=== PATIENT | male | born 1970 | race Caucasian/White ===

== ENCOUNTER 2020-06-25 10:24 | Outpatient (CLI) | payer BC, SELFPAY ==
--- NOTE | 2020-06-25 10:35 | EST_ITS ---
Patient Info Name: Ambrose Quezada Age: 50 years : 1970 Gender: Male Ht: 72 in Wt: 204 lbs BSA: 2.18 m2 BP: 128 / 80 mmHg Exam Date: 06/25/2020 10:51 AM Exam Location: [facility] Patient Status: Outpatient Admit Date: 06/25/2020 Staff Ordering Physician: Rashard Lopez DO Industrial Training Specialist: Nain Magdaleno RDCS, RT Attending Provider: MICKEY APODACA DO Referring Physician: John BLCAKMAN; Exercise Technologist: Nain Magdaleno RDCS, RT Exercise Physician: Mickey Apodaca DO Exam Type: CA stress echo Study Info Indications Z82.49 - Family history of ischemic heart disease and other diseases of the circulatory system Treadmill exercise stress echocardiogram is performed. Summary 1. 1. Negative Artur exercise stress test for ischemic ST changes by ECG criteria. 2. 2. Good functional capacity, achieving 13 METs of workload. 3. 3. Appropriate HR response to exercise. 4. 4. Appropriate HR recovery at 1 minute post exercise. 5. 5. Negative stress echocardiogram for ischemia by wall motion analysis. 6. 6. Patient informed of the above results. Stress Echo Findings Left Ventricle Appropriate increase in LV endocardial thickening with systole. Appropriate augmentation of contractility with systole. No wall motion abnormality. Left Ventricle Normal LV systolic function, no wall motion abnormality. Protocol: Artur Stress ECG Details Stage: REST Duration (min): 2 min : 6 sec Speed (mph): 0.0 Grade (%): 0 HR (bpm): 69 SBP (mmHg): 128 DBP (mmHg): 80 METS: --- Stage: REST Duration (min): 15 min : 51 sec Speed (mph): 0.0 Grade (%): 0 HR (bpm): 75 SBP (mmHg): 128 DBP (mmHg): 80 METS: --- Stage: STAGE 1 Duration (min): 1 min : 0 sec Speed (mph): 1.7 Grade (%): 10 HR (bpm): 98 SBP (mmHg): 128 DBP (mmHg): 80 METS: --- Stage: STAGE 1 Duration (min): 2 min : 0 sec Speed (mph): 1.7 Grade (%): 10 HR (bpm): 97 SBP (mmHg): 128 DBP (mmHg): 80 METS: --- Stage: STAGE 1 Duration (min): 3 min : 0 sec Speed (mph): 1.7 Grade (%): 10 HR (bpm): 97 SBP (mmHg): 144 DBP (mmHg): 79 METS: --- Stage: STAGE 2 Duration (min): 1 min : 0 sec Speed (mph): 2.5 Grade (%): 12 HR (bpm): 110 SBP (mmHg): 144 DBP (mmHg): 79 METS: --- Stage: STAGE 2 Duration (min): 2 min : 0 sec Speed (mph): 2.5 Grade (%): 12 HR (bpm): 114 SBP (mmHg): 181 DBP (mmHg): 82 METS: --- Stage: STAGE 2 Duration (min): 3 min : 0 sec Speed (mph): 2.5 Grade (%): 12 HR (bpm): 118 SBP (mmHg): 181 DBP (mmHg): 82 METS: --- Stage: STAGE 3 Duration (min): 1 min : 0 sec Speed (mph): 3.4 Grade (%): 14 HR (bpm): 126 SBP (mmHg): 196 DBP (mmHg): 84 METS: --- Stage: STAGE 3 Duration (min): 2 min : 0 sec Speed (mph): 3.4 Grade (%): 14 HR (bpm): 134 SBP (mmHg): 196 DBP (mmHg): 84 METS: --- Stage:
== END 2020-06-25 10:25 | disposition home or self-care (01) ==
PROVIDERS: PCP Internal Medicine; Visit Provider Internal Medicine
DX: Z82.49 Family history of ischemic heart disease and other diseases of the circulatory system (principal)
CPT/HCPCS: 93351

== ENCOUNTER 2020-12-09 07:59 | Outpatient (CLI) | payer BC, SELFPAY ==
--- NOTE | ~2020-12-09 | XR_ITS ---
XR chest 2V DATE: 12/09/2020 08:26 INDICATION: Cough. Sinus drainage. Nonsmoker. Prostate cancer. TECHNIQUE: PA and lateral views COMPARISON: 05/27/2017 PA and lateral chest FINDINGS: Normal heart size. No hilar or mediastinal enlargement. No pulmonary infiltrate or consolid ation, pleural effusion or pulmonary vascular congestion or pneumothorax. Included skeletal structure s are unremarkable. IMPRESSION: No active cardiopulmonary disease Reviewed, dictated and finalized at location A.
--- NOTE | ~2020-12-09 | CT_ITS ---
EXAMINATION: CT abdomen pelvis w con DATE: 12/09/2020 08:42 INDICATION: Prostate cancer TECHNIQUE: Computed tomography (CT) of the abdomen and pelvis was performed with 100 cc Omnipaque 350 intravenous contrast. Automated exposure control and iterative reconstruction technique were employe d. Exam dose: 688.09 mGy-cm total exam DLP. COMPARISON: 11/27/2014 CT abdomen pelvis FINDINGS: The lung bases are clear. Normal heart size. No pericardial or pleural effusion. Stable approximately similar hypoechoic attenuating lesion in the posteromedial right hepatic lobe, u nchanged since 11/27/2014; this is therefore likely benign, possibly a small hemangioma or cyst. No ot her hepatic space-occupying mass lesion is detected. The gallbladder is unremarkable. No gallbladder wall thickening or pericholecystic fluid or fat stran ding. No bile duct or pancreatic duct dilatation. No pancreatic mass lesion or calcification. Normal splenic size. Normal morphology of the adrenal glands. No renal mass lesion or urinary tract calculus or hydroureteronephrosis. The urinary bladder is relat ively evacuated and unremarkable. Moderate prostate enlargement. Normal caliber of the abdominal aorta. No intraperitoneal or retroperitoneal or pelvic mass lesion or adenopathy or ascites. Diverticulosis of the colon; no CT evidence of diverticulitis. No bowel obstruction, bowel wall thick ening, pneumatosis or intraperitoneal free air. No evidence of appendicitis. No suspicious osteolytic or osteoblastic lesions. IMPRESSION: Stable likely benign 7 mm hypoattenuation lesion of the right hepatic lobe, unchanged si nce 11/27/2014 Diverticulosis of the colon; no CT evidence of diverticulitis Moderate prostate enlargement. No pelvic or abdominal adenopathy or osteosclerotic metastatic disease is detected Reviewed, dictated and finalized at Location A. Reviewed, dictated and finalized at location A. IMPRESSION: Stable likely benign 7 mm hypoattenuation lesion of the right hepa tic lobe, unchanged since 11/27/2014 Diverticulosis of the colon; no CT evidence of diverticulitis Moderate prostate enlargement. No pelvic or abdominal adenopathy or osteosclero tic metastatic disease is detected
--- NOTE | ~2020-12-09 | NM_ITS ---
NM bone scan whole body DATE: 12/09/2020 11:27 INDICATION: Prostate cancer TECHNIQUE: Routine delayed images of the skeleton after 23 mCi 99m technetium HDP intravenous adminis tration. COMPARISON: 12/09/2020 2 view chest 12/09/2020 CT abdomen pelvis FINDINGS: There is normal distribution of activity throughout the axial and appendicular skeleton wit hout evidence of any significant abnormal focus of increased uptake. Normal renal activity is noted. IMPRESSION: Normal examination; no evidence of metastatic disease Reviewed, dictated and finalized at Location A. Reviewed, dictated and finalized at location A.
== END 2020-12-09 08:00 | disposition home or self-care (01) ==
LOC: ANHIMG 08:05
PROVIDERS: PCP Internal Medicine; Visit Provider Urology
DX: C61 Malignant neoplasm of prostate (principal); K57.30 Diverticulosis of large intestine without perforation or abscess without bleeding
CPT/HCPCS: 71046; 74177; 78306; A9561; Q9967

== ENCOUNTER 2020-12-17 09:56 | Outpatient (CLI) | payer BC, SELFPAY ==
--- NOTE | 2020-12-17 11:00 | ECG_ITS ---
Measurements Intervals [place] Rate: 61 P: 50 RI: 149 QRS: 67 QRSD: 115 T: 26 QT: 392 QTc: 396 Interpretive Statements SINUS RHYTHM INTRAVENTRICULAR CONDUCTION DELAY DELAYED PRECORDIAL R/S TRANSITION BASELINE ARTIFACT- I, III, AVL BORDERLINE ECG Electronically Signed On 12-17-2020 11:16:57 CDT by Mickey White D.O.
[2020-12-17 11:32] LABS: Basophils Percent Auto 0.5 % (0.2-1.2); Eosinophils Absolute Auto 0.1 K/mm3 (0-0.3); Eosinophils Percent Auto 1.5 % (0-4.4); Hematocrit 46.2 % (42.0-52.0); Hemoglobin 14.9 g/dL (14.0-18.0); Immature Granulocyte Absolute 0.02 K/mm3 (0.00-0.031); Immature Granulocyte Percent A 0.4 % (0-0.5); Lymphocytes Absolute Auto 1.46 K/mm3 (0.9-3.2); Lymphocytes Percent Auto 26.6 % (18.3-44.2); Mean Corpuscular HGB Conc 32.3 g/dl (32-36); Mean Corpuscular Hemoglobin 29.6 pg (26-34); Mean Corpuscular Volume 91.8 fl (80-100); Mean Platelet Volume 10.3 fl (7.4-10.4); Monocytes Absolute Auto 0.5 K/mm3 (0.1-0.6); Monocytes Percent Auto 9.1 % (2.6-8.5); Neutrophils Absolute Auto 3.4 K/mm3 (1.3-6.7); Neutrophils Percent Auto 61.9 % (45.5-73.1); Platelet Count Result 260 k/mm3 (150-375); Red Blood Count 5.03 M/mm3 (4.6-6.20); Red Cell Distribution Width 11.9 % (11.5-14.5); White Blood Count 5.5 K/mm3 (4.5-10.0)
[2020-12-17 11:43] LABS: Alanine Aminotransferase 47 U/L (4-50); Albumin Level 4.5 g/dL (3.5-5.1); Alkaline Phosphatase 91 U/L (38-126); Anion Gap 7 mmol/L (8-16); Aspartate Amino Transferase 29 U/L (17-59); Bilirubin,Total 0.3 mg/dL (0.2-1.3); Blood Urea Nitrogen 16 mg/dL (9-20); Calcium 9.5 mg/dL (8.4-10.2); Carbon Dioxide 30 mmol/L (22-30); Chloride 102 mmol/L (98-107); Estimated Glomerular Filt Rate > 60; Glucose 97 mg/dL (65-110); Potassium 4.1 mmol/L (3.4-5.0); Sodium 139 mmol/L (137-145)
[2020-12-17 11:50] LABS: INR 0.9; Partial Thromboplastin Time 27.9 SECONDS (22.3-36.8); Prothrombin Time 11.9 Seconds (11.1-14.7)
== END 2020-12-17 09:57 | disposition home or self-care (01) ==
PROVIDERS: PCP Internal Medicine; Visit Provider Urology
DX: C61 Malignant neoplasm of prostate (principal)
CPT/HCPCS: 36415; 80053; 85025; 85610; 85730; 86850; 86900; 86901; 87086; 93005

== ENCOUNTER 2020-12-22 13:55 | Outpatient (CLI) | payer BC, SELFPAY ==
[2020-12-22 14:53] LABS: Add Urine Microscopic? YES; Appearance Urine Clear (Clear); Bilirubin Urine Negative (Negative); Blood Urine 1+ (Negative); Color Urine Yellow (Yellow); Glucose Urine UA Negative (Negative); Ketones Urine Negative (Negative); Leukocyte Esterase Ur Negative LEU/UL (Negative); Nitrate Urine Negative (Negative); Protein Urine Negative (Negative); RBC Urine 0-2 /hpf (0-2); Specific Grav Ur 1.017 (1.001-1.035); Urobilinogen Urine Negative mg/dL (<2.0)
== END 2020-12-22 13:56 | disposition home or self-care (01) ==
LOC: ANHSURGERY 13:58
PROVIDERS: PCP Internal Medicine; Visit Provider Urology
DX: C61 Malignant neoplasm of prostate (principal); Z01.818 Encounter for other preprocedural examination
CPT/HCPCS: 81001

== ENCOUNTER 2020-12-25 01:36 | Day surgery (SDC) | payer BC, SELFPAY ==
[2020-12-17 09:34] VITALS: BP 145/82; PULSE 64; RESP 16; TEMP 36.9; O2SAT 98
[2020-12-17 10:12] VITALS: BMI 27.3
--- NOTE | 2020-12-19 06:56 | P.HP_ITS ---
H&P: HPI History of Present Illness Date/Time: 12/19/20 06:56 pleasant 50 year recently referred with a PSA of 5.3. 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 scan the abdomen/pelvis chest x-ray were unremarkable. After careful discussions with the patient and his regarding therapeutic options he has elected for a robotic prostatectomy with bilateral pelvic lymphadenectomy. We did discuss alternative options including active surveillance and radiation therapy in its various forms. We also had discussed cryoablation and androgen deprivation. He is aware the risk of this procedure including, but not limited to, adverse cardiopulmonary events, rectal injury, urinary incontinence and erectile dysfunction. Chief Complaint: Prostate cancer Review of Systems Cardiovascular: Cardiovascular: Denies chest pain, Denies lightheadedness, Denies palpitations and Denies dyspnea Respiratory: Respiratory: Denies dyspnea Gastrointestinal: Gastrointestinal: Denies diarrhea, Denies nausea and Denies vomiting Genitourinary: Genitourinary: Denies hematuria and Denies dysuria Endocrine: Endocrine: Denies palpitations [facility] Family History Family History Mother Depression Father Heart disease Substance abuse Social History Social History Smoking status: Never smoker Alcohol intake: current Drinks per week: 5 Substance use: never Additional living arrangements comments: Spiritual care concerns: No Meds Home Medications and Allergies Home Medications Medication Instructions Recorded Confirmed Type atorvastatin 10 mg tablet 10 mg PO DAILY #30 tablet 07/14/20 12/17/20 Rx alprazolam [Xanax] 0.25 mg PO BID PRN 12/17/20 12/17/20 History fluoxetine 10 mg PO QAM 12/17/20 12/17/20 History multivitamin [Multiple Vitamin] 1 tablet PO DAILY 12/17/20 12/17/20 History omeprazole 20 mg PO DAILY PRN 12/17/20 12/17/20 History Allergies Allergy/AdvReac Type Severity Reaction Status Date / Time aspirin Allergy Unknown Rash Verified 12/17/20 10:07 Exam Const: General: no acute distress Resp: Effort & Inspection: normal respiratory effort GI: Inspection: non-distended GI Palp: No abdominal tenderness and No Guarding due to palpation present (GI) Auscultation: normal bowel sounds Assessment and Plan Assessment and plan (1) Prostate cancer: Code(s): C61 - Malignant neoplasm of prostate Status: Acute Assessment and Plan: * Robotic assisted radical prostatectomy with bilateral pelvic lymphadenectomy
--- NOTE | 2020-12-24 15:34 | WPDANESEPPF ---
Anes - Initial Pre Proc Eval Procedure: Operation Date: 12/25/20 07:30 Proposed Procedures p Robotic Assisted Laparoscopic Prostatectomy, Pelvic Lymph Node Dissection - Jacob Montgomery MD Date/Time: 12/24/20 15:34 Surgeon: Jacob Montgomery MD Pre Op Diagnosis: prostate cancer Patient Data Age: 50 Gender: M Height: 1.84 m Weight: 92.9 kg Last Vital Signs Temp 98.5 F 12/17/20 09:34 Pulse 64 12/17/20 09:34 Resp 16 12/17/20 09:34 BP 145/82 H 12/17/20 09:34 Pulse Ox 98 12/17/20 09:34 Allergies Allergy/AdvReac Type Severity Reaction Status Date / Time aspirin Allergy Unknown Rash Verified 12/17/20 10:07 Home Medications Medication Instructions Recorded Confirmed Type atorvastatin 10 mg tablet 10 mg PO DAILY #30 tablet 07/14/20 12/25/20 Rx alprazolam [Xanax] 0.25 mg PO BID PRN 12/17/20 12/25/20 History fluoxetine 10 mg PO QAM 12/17/20 12/25/20 History multivitamin [Multiple Vitamin] 1 tablet PO DAILY 12/17/20 12/25/20 History omeprazole 20 mg PO DAILY PRN 12/17/20 12/25/20 History Patient hx anesthesia problems: none Family hx anesthesia problems: none PMFSH Past Medical History Medical History (Updated 12/24/20 @ 15:34 by Frederic Chsiholm MD) Anxiety Depression Hyperlipidemia Prostate cancer Family History Family History Mother Depression Father Heart disease Substance abuse Social History Social History Smoking status: Never smoker Alcohol intake: current Drinks per week: 5 Substance use: never Living arrangements: alone Additional living arrangements comments: Spiritual care concerns: No Anes - Eval Final PreProcedure Day of Procedure 12/24/20 15:34 Patient weight: overweight Heart: regular rate and rhythm Lungs: clear to auscultation Airway: Mallampati scale class II Neurological: alert and oriented Last oral intake: >/= 8 hours ASA classification: III Emergent: no Anesthetic plan: proceed Anesthesia type and monitoring: general ETT and standard monitoring Informed Consent: The patient's anesthetic plan and its attendant risks and benefits were discussed with the patient/family/POA. Questions were solicited and answers provided to the satisfaction of the patient/family/POA.
[2020-12-25] VITALS (12 sets, daily range): BP systolic 123–153; BP diastolic 75–97; PULSE 57–86; RESP 14–20; TEMP 35.7–37.2; O2SAT 94–100
[2020-12-25] MEDS: LACTATED RINGERS 1,000 ML 30 ML IV CONT ×2 (06:25→12:01)
--- NOTE | 2020-12-25 06:33 | WPDHPUPDATE1 ---
History and Physical Update Update Date/Time: 12/25/20 06:33 History and Physical has been reviewed, including an updated exam of the patient. There are NO changes in the patient's condition. Risks, benefits, and alternatives have been discussed and questions answered. Patient agrees to proceed with procedure.
--- NOTE | 2020-12-25 07:00 | WPDHPUPDATE1 ---
History and Physical Update Update Date/Time: 12/25/20 07:00 History and Physical has been reviewed, including an updated exam of the patient. There are NO changes in the patient's condition. Risks, benefits, and alternatives have been discussed and questions answered. Patient agrees to proceed with procedure.
[2020-12-25] MEDS: ceFAZolin 2 GM/D5W 50 ML 2 GM/50 ML BAG IVPB (07:28)
--- NOTE | 2020-12-25 11:49 | W.PM.PROC2 ---
Procedure Note - Detailed Date of Procedure 12/25/20 Pre-op Diagnosis prostate cancer Post-op Diagnosis same Procedure Performed Robotic-assisted, nerve-sparing laparoscopic radical prostatectomy, bilateral pelvic lymphadenectomy. Surgeon Jacob Montgomery MD Anesthesia general Description of Procedure The patient was brought to the operative suite, where he was prepped and draped in routine sterile fashion while in a dorsal lithotomy, deep Trendelenburg position. A supraumbilical 10 mm trocar was placed after insufflation of the abdomen with a Veress needle. Three robotic ports were then placed under direct vision. Two of these were placed in the right lower quadrant - 10 cm and 20 cm lateral to, and in line with, the umbilicus. A third robotic trocar was placed 10 cm to the left of the umbilicus, and 20 cm to the left of the umbilicus, a 12 mm standard laparoscopic trocar was placed to be used as an child care assistant port. Lastly, a 5 mm trocar was placed in the left upper quadrant midway between the umbilicus and the left robotic trocar. Attention was then turned to the prostatectomy. I opted for a posterior approach in this patient. An incision was made in the parietal peritoneum along the posterior bladder/posterior prostate about 2 cm above the reflection of the peritoneum over the anterior rectum. The seminal vesicles and vas deferens were immediately identified. Dissection is undertaken in a fashion so as to avoid electrocautery as much as possible, particularly near the tips of the seminal vesicles. Dissection was also carried out in the midline so as to avoid any encounters with the ureters. The vas deferens and the seminal vesicles were dissected in their entirety to the base of the prostate. The plane anterior to Denoviller's fascia, anterior to the rectum and posterior to the prostate was then developed. I then dropped the bladder by incising the anterior parietal peritoneum just lateral to the median umbilical ligaments bilaterally. The bladder was dropped from the anterior abdominal and pelvic wall. The endopelvic fascia was identified and incised bilaterally, allowing for dissection of the posterior-lateral aspect of the prostate. The puboprostatic ligaments were transected near their origin from the posterior pubic ramus. This posterior lateral dissection of the prostate is also undertaken in a fashion so as to avoid electrocautery as much as possible. The dorsal vein of the penis is then secured with an 0 -Vicryl ligature. Attention is then turned to the bladder neck. The anterior bladder neck is incised at the vesico-prostatic junction. The previously placed urethral catheter was drawn through the urethrotomy. A very small bladder neck was maintained throughout the remainder of this dissection. The posterior bladder neck was incised in a fashion so as to avoid any injury to the ureteral orifices. Again, the small aperture of the bladder neck was maintained. The previously dissected vas deferens and the seminal vesicles were brought through the posterior bladder neck incision. The lateral prostatic pedicles were then carefully dissected from the lateral aspect of the prostate bilaterally. The prostatic pedicles were secured with Weck clips and transected. The neurovascular bundles were carefully dissected from the posterior-lateral aspect of the prostate. The dorsal vein of the penis was incised with electrocautery. Using cold scissors, the urethra was incised. After withdrawing the previously placed urethral catheter, the posterior urethra was sharply incised, as was the rectalurethralis muscle. Attention was then turned to an extended bilateral pelvic lymphadenectomy. The limits of this dissection were similar bilaterally. Specifically, the limits were the bifurcation of the common iliac vein proximally, the inguinal ligament distally, the obturator nerve posteriorly and the anterior aspect to the external iliac artery laterally.
[2020-12-25] MEDS: fentaNYL CITRATE INJ (*CRX) 100 MCG/2 ML VIAL 25 MCG IV PUSH ×4 (12:27→12:54)
[2020-12-25] MEDS: LACTATED RINGERS 1,000 ML 125 ML IV CONT ×2 (14:45→23:01)
[2020-12-25] MEDS: KETOROLAC 30 MG/ML VIAL (*BKC) IV PUSH ×2 (16:59→23:07)
[2020-12-26 03:17] VITALS: BP 115/71; PULSE 51; RESP 20; TEMP 36.3; O2SAT 99
[2020-12-26 06:25] LABS: Hematocrit 39.9 % (42.0-52.0); Hemoglobin 12.7 g/dL (14.0-18.0)
[2020-12-26 06:41] LABS: Anion Gap 3 mmol/L (8-16); Blood Urea Nitrogen 13 mg/dL (9-20); Calcium 8.4 mg/dL (8.4-10.2); Carbon Dioxide 30 mmol/L (22-30); Chloride 101 mmol/L (98-107); Estimated CRCL calculation 97 ml/min; Estimated Glomerular Filt Rate > 60; Glucose 102 mg/dL (65-110); Potassium 4.3 mmol/L (3.4-5.0); Sodium 134 mmol/L (137-145)
[2020-12-26 07:45] VITALS: BP 127/84; PULSE 68; RESP 16; TEMP 36.1; O2SAT 98
--- NOTE | 2020-12-26 07:50 | WPDUROPN2 ---
Progress Note: A&P Assessment and Plan (1) Prostate cancer: Code(s): C61 - Malignant neoplasm of prostate Status: Acute Assessment and Plan: Doing well POD #1. Increase diet/ambulation. Likely home later today. Subjective Subjective Date/Time Seen: 12/26/20 07:50 Comfortable, tolerating diet Review of Systems Cardiovascular: Cardiovascular: Denies chest pain, Denies lightheadedness, Denies palpitations and Denies dyspnea Respiratory: Respiratory: Denies dyspnea Gastrointestinal: Gastrointestinal: Denies diarrhea, Denies nausea and Denies vomiting Genitourinary: Genitourinary: Denies hematuria and Denies dysuria Endocrine: Endocrine: Denies palpitations Exam Const: General: no acute distress Resp: Effort & Inspection: normal respiratory effort GI: Inspection: non-distended GI Palp: No abdominal tenderness and No Guarding due to palpation present (GI) Auscultation: normal bowel sounds Objective Data Vital Signs Vital Signs: Vital Signs - 24 hr 12/25/20 12:01 12/25/20 12:15 12/25/20 12:30 Temperature 97.5 F L Pulse Rate 83 75 65 Respiratory Rate 19 18 14 Blood Pressure 153/89 H 141/97 H 144/90 H Pulse Oximetry 100 100 100 12/25/20 12:45 12/25/20 13:00 12/25/20 13:15 Temperature 99.0 F Pulse Rate 67 73 70 Respiratory Rate 14 14 14 Blood Pressure 130/87 134/80 133/82 Pulse Oximetry 99 97 97 12/25/20 13:46 12/25/20 14:25 12/25/20 15:25 Temperature 96.2 F L 96.5 F L 96.4 F L Pulse Rate 85 86 79 Respiratory Rate 16 16 18 Blood Pressure 129/76 129/75 140/76 Pulse Oximetry 94 96 98 12/25/20 19:17 12/25/20 23:17 12/26/20 03:17 Temperature 97.1 F L 98.3 F 97.3 F L Pulse Rate 70 57 L 51 L Respiratory Rate 20 20 20 Blood Pressure 149/80 H 127/76 115/71 Pulse Oximetry 98 98 99 Intake/Output Intake/Output: Intake & Output 12/23/20 12/24/20 12/25/20 12/26/20 23:59 23:59 23:59 23:59 Intake Total 2290 700 Output Total 450 1350 Balance 1840 -650 Meds/Results Medications: Active Medications Generic Name Dose Route Start Last Admin Trade Name Freq PRN Reason Stop Dose Admin Alprazolam 0.25 mg 12/25/20 13:32 Alprazolam (*Crx) 0.25 Mg Tablet PO BID PRN Anxiety Atorvastatin Calcium 10 mg 12/26/20 09:00 Atorvastatin 10 Mg Tablet PO DAILY [facility] Fluoxetine HCl 10 mg 12/26/20 09:00 Fluoxetine Hcl 10 Mg Capsule PO QAM [facility] Hyoscyamine 0.125 mg 12/25/20 13:32 Hyoscyamine Sulfate 0.125 Mg Tablet SUBLINGUAL Q4H PRN Bladder Spasm Lactated Ringer's 1,000 mls @ 125 mls/hr 12/25/20 13:32 12/25/20 23:01 Lr - Lactated Ringers Iv IV CONT 125 mls/hr .Q8H [facility] Administration Acetaminophen 1,000 mg in 100 mls @ 400 mls/hr 12/25/20 19:00 12/26/20 07:31 Ofirmev 1,000 Mg Ivpb IVPB 12/26/20 13:33 Infused Q6H [facility] Infusion Ketorolac Tromethamine 30 mg 12/25/20 13:32 12/25/20 23:07 Ketorolac 30 Mg/Ml Vial (*Bkc) IV PUSH 12/26/20 13:33 30 mg Q6H PRN Administration Pain Rated 4-6 Levofloxacin 500 mg 12/26/20 09:00 Levofloxacin 500 Mg Tablet PO DAILY [facility] Naloxone HCl 0.1 mg 12/25/20 13:32 Naloxone Hcl 0.4 Mg/Ml Vial IV PUSH Q2M PRN Opiate Reversal Pantoprazole Sodium 40 mg 12/25/20 13:32 Pantoprazole 40 Mg Tablet PO DAILY PRN Indigestion Labs Labs: Laboratory Results - last 24 hr 12/26/20 12/26/20 05:59 05:59 Hgb 12.7 L Hct 39.9 L Sodium 134 L Potassium 4.3 Chloride 101 Carbon Dioxide 30 Anion Gap 3 L BUN 13 Creatinine 0.90 Estim Creat Clear Calc 97 Estimated GFR > 60 Glucose 102 Calcium 8.4
[2020-12-26] MEDS: FLUoxetine HCL 10 MG CAPSULE PO (10:13)
[2020-12-26] MEDS: levoFLOXacin 500 MG TABLET PO (10:13)
[2020-12-26] MEDS: ATORVASTATIN 10 MG TABLET PO (10:13)
[2020-12-26] MEDS: LACTATED RINGERS 1,000 ML 125 ML IV CONT (10:14)
[2020-12-26 11:45] VITALS: BP 114/77; PULSE 69; RESP 18; TEMP 36.1; O2SAT 96
[2020-12-26] MEDS: KETOROLAC 30 MG/ML VIAL (*BKC) IV PUSH (11:58)
--- NOTE | 2020-12-26 12:55 | PM.DS ---
DS: Admitting Diagnosis Admitting Diagnosis Prostate cancer DS: Discharge Diagnosis Discharge Diagnosis (1) Prostate cancer: Code(s): C61 - Malignant neoplasm of prostate Status: Acute DS: Summary Hospital Course Hospital Course: This patient was admitted on the morning of his planned robotic prostatectomy. This procedure was uneventful, as was his postoperative course. By the evening of the procedure he was sitting at the bedside in tolerating a liquid diet. The following morning he was ambulating freely and tolerating regular food. His catheter drainage remained essentially clear throughout. His postoperative hemoglobin and serum creatinine were unremarkable. At the time of discharge he has been instructed in appropriate care for his P[place] catheter with both a leg bag and bedside bag. He will be discharged with plans to follow-up in 1 week with a cystogram. Time Spent with Patient Time attestation: Total time spent providing and/or coordinating discharge services: 15min Exam Const: General: no acute distress Resp: Effort & Inspection: normal respiratory effort GI: Inspection: non-distended GI Palp: No abdominal tenderness and No Guarding due to palpation present (GI) Auscultation: normal bowel sounds DS: Data Data Completed and Pending Pending studies at discharge: Pending at discharge 12/25/20 10:27 Surgical [PTH] Routine Labs on day of discharge: Labs from last 24 hours 12/26/20 12/26/20 05:59 05:59 Hgb 12.7 L Hct 39.9 L Sodium 134 L Potassium 4.3 Chloride 101 Carbon Dioxide 30 Anion Gap 3 L BUN 13 Creatinine 0.90 Estim Creat Clear Calc 97 Estimated GFR > 60 Glucose 102 Calcium 8.4 Discharge Plan Discharge Patient Disposition: Home, Self-Care Discharge Instructions: 1) Pritchett catheter -> leg bag / bedside bag at night. 2) No lifting/straining >15lbs. x3 weeks. 3) No driving x1-week. 4) Resume normal, pre-operative diet. 5) My office will contact regarding follow-up in 1-week with cystogram. Patient Instructions: [place]tt Catheter Placement and Care (ED) Stand Alone Forms: General Discharge Instructions Discharge Orders: Discharge Order (Routine); Ordered 12/26/20 Ordered By: Jacob Motngomery Discharge Medications: New docusate sodium [Colace] 100 mg capsule 100 mg PO DAILY Qty: 30 RF: 0 hydrocodone-acetaminophen 5-325 mg tablet 1 - 2 tablet PO Q6H PRN (Reason: pain) Qty: 20 RF: 0 sulfamethoxazole-trimethoprim 800-160 mg tablet 1 tablet PO Q12H Qty: 10 RF: 0 hyoscyamine sulfate 0.125 mg tablet 0.125 mg PO Q6H PRN (Reason: bladder spasms) Qty: 20 RF: 2 Continued atorvastatin 10 mg tablet 10 mg PO DAILY Qty: 30 RF: 5 multivitamin Tablet 1 tablet PO DAILY RF: 0 fluoxetine 10 mg capsule 10 mg PO QAM RF: 0 omeprazole 20 mg capsule,delayed release(DR/EC) 20 mg PO DAILY PRN (Reason: Indigestion) RF: 0 alprazolam [Xanax] 0.5 mg Tablet 0.25 mg PO BID PRN (Reason: Anxiety) RF: 0
== END 2020-12-26 14:13 | disposition home or self-care (01) ==
LOC: ANHSURGERY 05:51 → ANH3MED 13:37
PROVIDERS: PCP Internal Medicine; Visit Provider Urology
PROC: 0VT04ZZ Resection of Prostate, Percutaneous Endoscopic Approach (ICD-10-PCS; CPT 55867; principal; 2020-12-25 07:30)
DX: C61 Malignant neoplasm of prostate (principal); F41.8 Other specified anxiety disorders; E78.5 Hyperlipidemia, unspecified
CPT/HCPCS: 55866; 38571; S2900; 36415; 80048; 85014; 85018; 88305; 88307; 88309; A9270; J0131; J0690; J1100; J1885; J2250; J2405; J2704; J2710; J3010; J7030; J7120

== ENCOUNTER 2021-07-08 13:17 | Outpatient (CLI) | payer BC, SELFPAY ==
--- NOTE | ~2021-07-08 | XR_ITS ---
EXAMINATION: XR chest 2V DATE: 07/08/2021 13:37 INDICATION: Cough. Right chest pain. TECHNIQUE: Frontal and lateral views of the chest were obtained. COMPARISON: Chest 2 views 12/09/2020, CT abdomen and pelvis 12/09/2020 FINDINGS: The chest demonstrates clear lungs without pneumonia, pleural effusion, or pneumothorax. Th e heart size is normal. IMPRESSION: 1. No acute cardiopulmonary disease. Reviewed, dictated and finalized at location A. ACKUP ENGINEER
== END 2021-07-08 13:18 | disposition home or self-care (01) ==
PROVIDERS: PCP Internal Medicine; Visit Provider Nurse Practitioner
DX: R05.9 Cough, unspecified (principal)
CPT/HCPCS: 71046

== ENCOUNTER → 2022-06-04 14:50 | Outpatient (CLI) | payer BC, SELFPAY ==
--- NOTE | ~2022-06-04 | US_ITS ---
EXAMINATION: US soft tissue head and neck INDICATION: Left-sided neck pain TECHNIQUE: Limited bilateral ultrasound of the neck is performed in the areas of clinical concern. COMPARISON: None available FINDINGS: There are normal-appearing lymph nodes in the neck in the area of clinical concern. No susp icious cystic or solid mass is identified. IMPRESSION: 1. No specific sonographic correlate is identified for the reported palpable abnormality of concern. Further evaluation at this time should be based on clinical assessment. Continued follow-up physical examination is recommended. Reviewed, dictated and finalized at location B. [employer]OR [employer] OPERATIONS IMPRESSION: 1. No specific sonographic correlate is identified for the reported palpable ab normality of concern. Further evaluation at this time should be based on clinic al assessment. Continued follow-up physical examination is recommended.
== END ==
PROVIDERS: PCP Nurse Practitioner; Visit Provider Nurse Practitioner
DX: M54.2 Cervicalgia (principal); J32.9 Chronic sinusitis, unspecified; R09.89 Other specified symptoms and signs involving the circulatory and respiratory systems
CPT/HCPCS: 76536

== ENCOUNTER 2022-12-23 00:42 | Day surgery (SDC) | payer BC, SELFPAY ==
[2022-12-17 10:20] VITALS: BMI 28.4
[2022-12-23 08:15] VITALS: BP 132/90; PULSE 55; RESP 16; TEMP 36.4; O2SAT 98
[2022-12-23] MEDS: LACTATED RINGERS 1,000 ML 150 ML IV CONT (08:24)
--- NOTE | 2022-12-23 08:41 | WPDANESEPPF ---
Anes - Initial Pre Proc Eval Procedure: Operation Date: 12/23/22 09:15 Proposed Procedures p Esophagogastroduodenoscopy - Rodrick Shen MD Date/Time: 12/23/22 08:41 Surgeon: Rodrick Shen MD Pre Op Diagnosis: epigastric pain, cough Patient Data Age: 52 Gender: M Height: 1.83 m Weight: 95.3 kg Last Vital Signs Temp 36.4 C L 12/23/22 08:15 Pulse 55 L 12/23/22 08:15 Resp 16 12/23/22 08:15 BP 132/90 12/23/22 08:15 Pulse Ox 98 12/23/22 08:15 O2 Del Method Room Air 12/23/22 08:15 Allergies Allergy/AdvReac Type Severity Reaction Status Date / Time aspirin Allergy Unknown Rash Verified 12/23/22 08:14 Home Medications Medication Instructions Recorded Confirmed Type alprazolam 0.5 mg tablet (Xanax) 0.25 mg PO BID PRN Anxiety #60 tabs 06/09/21 12/23/22 Rx atorvastatin 10 mg tablet 10 mg PO DAILY #90 tabs 11/11/21 12/23/22 Rx pantoprazole 40 mg tablet,delayed 40 mg PO QAM #30 tabs 01/25/22 12/23/22 Rx release fluoxetine 10 mg capsule 10 mg PO QAM #90 caps 02/08/22 12/23/22 Rx Patient hx anesthesia problems: none Family hx anesthesia problems: none Results Review: All pre-operative results and documents have been reviewed as part of the pre-operative evaluation. [facility] Past Medical History Medical History Anxiety Depression Elevated PSA Hyperlipidemia Prostate cancer Surgical History Surgical History (Updated 12/23/22 @ 08:43 by Davian Linares MD) History of robot-assisted laparoscopic radical prostatectomy Family History Family History Mother Depression Father Heart disease Substance abuse Social History Social History Smoking status: Never smoker Second hand tobacco smoke exposure: No Alcohol intake: current Drinks per week: 7 Substance use: never Substance use type: does not use Living arrangements: with family Additional living arrangements comments: Spiritual care concerns: No Anes - Eval Final PreProcedure Day of Procedure 12/23/22 08:41 Patient weight: overweight Airway: Mallampati scale class II Last oral intake: >/= 8 hours ASA classification: III Emergent: no Anesthetic plan: proceed Anesthesia type and monitoring: general GIVS and standard monitoring Results Review: All pre-operative results and documents have been reviewed as part of the pre-operative evaluation. Informed Consent: The patient's anesthetic plan and its attendant risks and benefits were discussed with the patient/family/POA. Questions were solicited and answers provided to the satisfaction of the patient/family/POA.
--- NOTE | 2022-12-23 08:43 | WPDHPUPDATE1 ---
History and Physical Update Update Date/Time: 12/23/22 08:43 History and Physical has been reviewed, including an updated exam of the patient. There are NO changes in the patient's condition. Risks, benefits, and alternatives have been discussed and questions answered. Patient agrees to proceed with procedure.
[2022-12-23 09:27] VITALS: BP 130/81; PULSE 58; RESP 20; O2SAT 100
[2022-12-23 09:37] VITALS: BP 119/83; PULSE 56; RESP 20; O2SAT 98
[2022-12-23 09:47] VITALS: BP 134/90; PULSE 67; RESP 20; O2SAT 98
== END 2022-12-23 09:55 | disposition home or self-care (01) ==
PROVIDERS: PCP Nurse Practitioner; Visit Provider Internal Medicine Gastroenterology
PROC: 0DJ08ZZ Inspection of Upper Intestinal Tract, Via Natural or Artificial Opening Endoscopic (ICD-10-PCS; CPT 43235; principal; 2022-12-23 09:15)
DX: R10.13 Epigastric pain (principal); R05.9 Cough, unspecified; F41.9 Anxiety disorder, unspecified; F32.A Depression, unspecified; R97.20 Elevated prostate specific antigen [PSA]; E78.5 Hyperlipidemia, unspecified; Z85.46 Personal history of malignant neoplasm of prostate
CPT/HCPCS: 43239; 87081; J2704; J7120